=== PATIENT | male | born 1950 | race Caucasian/White ===

== ENCOUNTER → 2016-08-25 | Outpatient (CLI) | payer MEDICARE ==
--- NOTE | 2016-08-25 13:43 | REP ---
CT STUDY OF THE CHEST WITHOUT CONTRAST: HISTORY: Abnormal lung field findings. Comparison chest x-ray is from August 10, 2005. No other comparison imaging. CT FINDINGS: No pleural or pericardial effusion is seen. There is a low-density mass in the left adrenal gland with negative Hounsfield unit density mean. This is compatible with a benign left adrenal adenoma. It measures 3.5 x 3.3 x 3.7 cm. No right adrenal lesion is seen. The visualized upper abdominal structures are otherwise unremarkable. No hilar or mediastinal mass or adenopathy is seen. There is left coronary artery vascular calcification. No axillary or supraclavicular adenopathy is seen. Bone window settings show no bony destructive lesion. On lung window settings, there is a pattern of multiple noncalcified pulmonary nodules bilaterally. These are too numerous to count. The largest nodules are in the upper lobes. The largest nodule on the right measures 1.1 cm. The largest nodule on the left in the upper lobe measures 1.5 x 0.8 cm. Several of these appears spiculated. There are clusters of bernice bronchovascular nodules in the posterior segment and superior segment of the right upper lobe. No tracheobronchial abnormality is seen. IMPRESSION: Numerous noncalcified pulmonary nodules measuring up to 1.5 cm in greatest diameter. Bernice bronchovascular pattern. Granulomatous disease versus malignancy. No adenopathy or pleural effusion seen. 3.7 cm benign left adrenal adenoma. Signed by Angel Martinez MD 08/25/2016 02:06 P
== END ==
LOC: M RAD 12:51
PROVIDERS: ATTEND Internal Medicine Pulmonary Disease
DX: R91.8 Other nonspecific abnormal finding of lung field (principal); D35.00 Benign neoplasm of unspecified adrenal gland

== ENCOUNTER → 2016-12-15 | Outpatient (CLI) | payer MEDICARE ==
--- NOTE | 2016-12-15 10:27 | REP ---
Clinical: Follow-up pulmonary nodules. Comparison: 08/25/2016, 07/28/2016. Findings: The lung patiño are well-aerated. Scattered noncalcified pulmonary nodules primarily noted in the right upper lobe, left upper lobe, and right lower lobe remain essentially unchanged in size and quantity. No obvious new consolidation, or mass lesion appreciated. No pleural effusion. No pneumothorax. Tracheobronchial tree is patent. Subcentimeter lymph nodes are nonspecific. Mediastinum demonstrates stable atherosclerotic changes to the thoracic aorta and coronary arteries without cardiomegaly or pericardial effusion. Surrounding musculoskeletal structures demonstrate age-related changes without focal osseous abnormality. Stable 3.5 cm left adrenal adenoma noted. Impression: 1. The noncalcified pulmonary nodules scattered throughout the lung patiño and primarily noted in the bilateral upper lobes measuring up to approximately 15 mm are stable. 2. No new acute mediastinal or pleuroparenchymal process. 3. Stable benign left adrenal adenoma. Signed by Ryan Uriostegui MD 12/15/2016 10:19 A
== END ==
LOC: M RAD 09:40
PROVIDERS: ATTEND Internal Medicine Pulmonary Disease
DX: R91.8 Other nonspecific abnormal finding of lung field (principal); D35.00 Benign neoplasm of unspecified adrenal gland

== ENCOUNTER → 2017-06-15 | Outpatient (CLI) | payer MEDICARE | LOC: M RAD 10:24 | DX: R91.8 Other nonspecific abnormal finding of lung field (principal) | CPT/HCPCS: 71250 ==

== ENCOUNTER → 2019-03-14 | Outpatient (CLI) | payer MEDICARE ==
--- NOTE | 2019-03-14 14:21 | REP ---
Clinical: Follow up abnormal lung findings. Technique: Axial noncontrast images from the thoracic inlet to the upper abdomen with coronal and sagittal re-formations. Comparison: 06/15/2017. Findings: Innumerable noncalcified pulmonary nodules are again identified primarily noted in the posterior right upper lobe, scattered within the right lower lobe and within the left upper lobe which appear relatively stable. However, a single new nodule in the left upper lobe measuring 13 mm is now identified (image 45). No consolidation. No effusion. No pneumothorax. Tracheobronchial tree is patent. Hilar and mediastinal adenopathy has considerably increased from prior examination. As example, a 3.3 cm prevascular lymph node is now identified. Limited upper abdomen demonstrates 3.6 cm stable left adrenal adenoma. Impression: 1. A new noncalcified 13 mm pulmonary nodules identified in the left upper lobe and markedly increased mediastinal/hilar adenopathy is appreciated. Findings warrant pulmonary consultation and further investigation. Electronically Signed by Ryan Uriostegui MD 03/14/2019 02:13 P
== END ==
LOC: M RAD 13:44
PROVIDERS: ATTEND Internal Medicine Pulmonary Disease
DX: R91.1 Solitary pulmonary nodule (principal); R59.0 Localized enlarged lymph nodes

== ENCOUNTER → 2019-03-22 | Outpatient (CLI) | payer MEDICARE | LOC: M LAB 15:02 | PROVIDERS: ATTEND Internal Medicine Pulmonary Disease | DX: R91.8 Other nonspecific abnormal finding of lung field (principal) ==

== ENCOUNTER → 2019-04-21 | Outpatient (REF) | payer MEDICARE | LOC: M LAB REF 14:16 | PROVIDERS: ATTEND Thoracic Surgery (Cardiothoracic Vascular Surgery) | DX: R22.2 Localized swelling, mass and lump, trunk (principal) ==

== ENCOUNTER → 2019-05-05 | Outpatient (CLI) | payer MEDICARE ==
[~2019-05-05] MED LIST: ASPI81TA26 PO; BACL1TAB9 PO; DIAZ10TA2 PO; HYDR-3713 PO; ROSU10TA6 PO; TERA10CA3 PO; ZOLO100T PO; medical marijuana
[2019-05-05 13:10] LABS: BASO % 0.5 % (0.0-1.0); EOS # 0.2 10^3/uL (0.0-0.5); EOS % 4.2 % (0.0-3.0); HEMATOCRIT 40.3 % (42.0-52.0); HEMOGLOBIN 13.1 g/dl (13.5-17.5); LYMPH # 1.7 10^3/uL (1.5-5.0); MEAN CORPUSCULAR HEMOGLOBIN 29.9 pg (27.0-33.0); MEAN CORPUSCULAR HGB CONC 32.5 g/dl (32.0-36.5); MONO # 0.4 10^3/uL (0.0-0.8); MONO % 9.4 % (0.0-5.0); NEUTROPHILS # 1.9 10^3/uL (1.5-8.5); NEUTROPHILS % 44.7 % (36.0-66.0); PLATELET COUNT, AUTOMATED 154 10^3/uL (150-450); RED BLOOD COUNT 4.38 10^6/uL (4.30-6.10); WHITE BLOOD COUNT 4.2 10^3/uL (4.0-10.0)
[2019-05-05 13:18] LABS: INR 1.06; PROTHROMBIN TIME 13.5 SECONDS (11.8-14.0)
[2019-05-05 13:19] LABS: PARTIAL THROMBOPLASTIN TIME 30.3 SECONDS (25.0-38.4)
[2019-05-05 13:25] LABS: APPEARANCE, URINE CLEAR (CLEAR); BACTERIA, URINE AUTO NEGATIVE (NEGATIVE); BILIRUBIN, URINE AUTO NEGATIVE (NEGATIVE); BLOOD, URINE BLOOD NEGATIVE (NEGATIVE); COLOR, URINE YELLOW (YELLOW); GLUCOSE, URINE (UA) AUTO NEGATIVE (NEGATIVE); KETONE, URINE AUTO NEGATIVE (NEGATIVE); LEUKOCYTE ESTERASE, URINE AUTO NEGATIVE (NEGATIVE); MUCUS, URINE SMALL (NEGATIVE); NITRITE, URINE AUTO NEGATIVE (NEGATIVE); PROTEIN, URINE AUTO NEGATIVE (NEGATIVE); RBC, URINE AUTO 0 /HPF (0-3); SPECIFIC GRAVITY URINE AUTO 1.017 (1.002-1.035); SQUAMOUS EPITHELIAL CELL UR AU 0 /HPF (0-6); UROBILINOGEN, URINE AUTO 0.2 mg/dL (0.0-2.0); WBC, URINE AUTO 1 /HPF (0-3)
[2019-05-05 13:25] LABS: ABG BASE EXCESS -0.3 (-2.0-2.0); ABG HCO3 23.5 MEQ/L (22.0-26.0); ABG O2 SATURATION 96.6 % (95.0-99.0); ABG PARTIAL PRESSURE CO2 35.7 mmHg (35.0-45.0); ABG PARTIAL PRESSURE O2 90.7 mmHg (75.0-100.0); ABG STANDARD HCO3 24.2 MEQ/L (22.0-26.0); ABG TOTAL CO2 24.6 MEQ/L (23.0-31.0); ABG pH (ARTERIAL) 7.436 UNITS (7.350-7.450)
[2019-05-05 13:25] LABS: BLOOD UREA NITROGEN 20 MG/DL (7-18); CALCIUM LEVEL 8.7 MG/DL (8.8-10.2); CARBON DIOXIDE LEVEL 26 MEQ/L (21-32); CHLORIDE LEVEL 107 MEQ/L (98-107); CREATININE FOR GFR 1.08 MG/DL (0.70-1.30); GLOMERULAR FILTRATION RATE > 60.0 (>42); GLUCOSE, FASTING 95 MG/DL (70-100); POTASSIUM SERUM 3.8 MEQ/L (3.5-5.1); SODIUM LEVEL 140 MEQ/L (136-145)
--- NOTE | 2019-05-05 14:10 | REP ---
Chest x-ray: Two views. History: Mediastinal lymphadenopathy. Comparison chest x-ray Aug 10 1005. Comparison is made with chest CT study March 14, 2019. Findings: There is a faintly visualized 1.1 cm nodular density in the left perihilar region. There is left hilar and AP window left mediastinal fullness consistent with adenopathy. The lung patiño are otherwise clear. Pleural angles are sharp. Heart is not enlarged. Thoracic vertebral body heights are preserved. The patient is status post cervical discectomy and fusion plating. Impression : Left hilar and left mediastinal lymphadenopathy. Subtle left perihilar nodule. Rule out bronchogenic malignancy. Otherwise no acute disease. Electronically Signed by Angel Martinez MD 05/05/2019 02:01 P
--- NOTE | 2019-05-06 08:14 | ECGEPIP ---
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
== END ==
LOC: M ADMPAT 12:16
PROVIDERS: ATTEND Thoracic Surgery (Cardiothoracic Vascular Surgery)
DX: R59.9 Enlarged lymph nodes, unspecified (principal)

== ENCOUNTER 2019-05-10 06:50 | Inpatient (IN) | payer MEDICARE ==
[2019-05-10] VITALS (14 sets, daily range): BP systolic 106–147; BP diastolic 56–71
[~2019-05-10] VITALS: Ht 182.9 cm; Wt 84.5 kg
[~2019-05-10 06:50] MED LIST changes: +LIDOCAINE 1% MDV 20ML VIAL SQ PRN; +LIDOCAINE 2% INJ 100 MG/5 ML SDV (FOR ANES.) As Ordered ONE; +LR 1,000 ML IV ONE; +MIDAZOLAM INJ 2 MG/2 ML VIAL (J2250) As Ordered ONE; +ONDANSETRON 4MG/2ML VIAL (J2405) As Ordered ONE; +ROCURONIUM BROMIDE 50 MG/5 ML VIAL As Ordered ONE; +SUGAMMADEX SODIUM 500 MG/5 ML VIAL (BRIDION) As Ordered ONE; +dexameTHASONE 4 MG/ML 1ML VIAL (J1100) As Ordered ONE; +fentaNYL 250 MCG/5 ML INJECTION (J3010) As Ordered ONE; +propofoL 200 MG/20 ML VIAL As Ordered ONE
[2019-05-10] MEDS ORDERED: VANCOMYCIN HCL 1,000 MG, VIAL MATE ADAPTER 1 EACH in D5W 250 ML IV ONE (07:45)
[2019-05-10] MEDS ORDERED: MUPIROCIN 2% OINT 22 GM TUBE TOP ONE (07:45)
[2019-05-10] MEDS ORDERED: BUPR150T3 PO (07:46)
[2019-05-10] MEDS ORDERED: MIDAZOLAM INJ 2 MG/2 ML VIAL (J2250) As Ordered ONE (08:03)
[2019-05-10] MEDS ORDERED: fentaNYL 100 MCG/2 ML INJECTION (J3010) As Ordered ONE (08:03)
[2019-05-10] MEDS ORDERED: BUPIVACAINE HCL 0.25% 30 ML VIAL As Ordered ONE (08:27)
[2019-05-10] MEDS ORDERED: BUPIVACAINE LIPOSOME/PF 1.3% 20ML VIAL (13.3MG/ML)(EXPAREL)(C9290 PER1MG) As Ordered ONE (08:30)
[2019-05-10] MEDS ORDERED: BUPIVACAINE HCL 0.5% 10 ML VIAL As Ordered ONE (08:30)
[2019-05-10] MEDS ORDERED: CETACAINE SPRAY 5GM As Ordered ONE (08:30)
[2019-05-10] MEDS ORDERED: LIDOCAINE 2% W/EPIN INJ 20ML **PRES FREE As Ordered ONE (08:55)
[2019-05-10] MEDS ORDERED: EPIDURAL/PCA KEYS XX PRN (09:00)
[2019-05-10] MEDS ORDERED: MIDAZOLAM INJ 2 MG/2 ML VIAL (J2250) IV ONE (09:00)
[2019-05-10] MEDS ORDERED: METOCLOPRAMIDE INJ 10MG/2ML VIAL (J2765) IV PRN (09:00)
[2019-05-10] MEDS ORDERED: ONDANSETRON 4MG/2ML VIAL (J2405) IV PRN ×3 (09:00→12:45)
[2019-05-10] MEDS ORDERED: NALOXONE INJ 0.4 MG/1 ML VIAL (J2310) IV PRN (09:00)
[2019-05-10] MEDS ORDERED: WALLBOXKEY XX PRN (09:00)
[2019-05-10] MEDS ORDERED: fentaNYL 100 MCG/2 ML INJECTION (J3010) IV ONE (09:00)
[2019-05-10] MEDS ORDERED: GLYCOPYRROLATE INJ 0.2 MG/ML 2 ML VIAL As Ordered ONE (09:40)
[2019-05-10] MEDS ORDERED: LIDOCAINE 1% MDV 20ML VIAL ONE (10:34)
[2019-05-10] MEDS ORDERED: ACETAMINOPHEN 1000MG 100ML IV BTL (OFIRMEV) (J0131 PER 10MG) As Ordered ONE (10:48)
[2019-05-10] MEDS ORDERED: KETOROLAC 60 MG/2 ML VIAL (J1885) As Ordered ONE (10:52)
[2019-05-10] MEDS ORDERED: LEVALBUTEROL 1.25 MG/0.5 ML CONCENTRATE NEB NEB PRN (11:15)
[2019-05-10] MEDS ORDERED: PERCOCET 5MG/325MG TAB PO PRN ×2 (11:15)
[2019-05-10] MEDS ORDERED: ACETAMINOPHEN TAB 650MG DOSE (2X325MG) PO PRN (11:15)
[2019-05-10] MEDS ORDERED: BISACODYL 10 MG SUPP PR PRN (11:15)
[2019-05-10] MEDS: FENTANYL/BUPIVACAINE/NACL BAG 250 ML EPIDURAL SCH (11:25)
[2019-05-10 11:42] LABS: ABG BASE EXCESS -1.1 (-2.0-2.0); ABG O2 SATURATION 98.7 % (95.0-99.0); ABG PARTIAL PRESSURE CO2 47.7 mmHg (35.0-45.0); ABG PARTIAL PRESSURE O2 145.5 mmHg (75.0-100.0); ABG STANDARD HCO3 23.6 MEQ/L (22.0-26.0); ABG TOTAL CO2 26.5 MEQ/L (23.0-31.0); ABG pH (ARTERIAL) 7.338 UNITS (7.350-7.450)
[2019-05-10 11:47] LABS: BASO % 0.5 % (0.0-1.0); EOS # 0.1 10^3/uL (0.0-0.5); EOS % 3.3 % (0.0-3.0); HEMATOCRIT 37.5 % (42.0-52.0); HEMOGLOBIN 12.2 g/dl (13.5-17.5); LYMPH % 25.9 % (24.0-44.0); MEAN CORPUSCULAR HGB CONC 32.5 g/dl (32.0-36.5); MEAN CORPUSCULAR VOLUME 92.4 fl (80.0-96.0); MONO # 0.1 10^3/uL (0.0-0.8); MONO % 3.5 % (0.0-5.0); NEUTROPHILS # 2.7 10^3/uL (1.5-8.5); NEUTROPHILS % 66.5 % (36.0-66.0); PLATELET COUNT, AUTOMATED 144 10^3/uL (150-450); RED BLOOD COUNT 4.06 10^6/uL (4.30-6.10)
[2019-05-10 12:13] LABS: BLOOD UREA NITROGEN 22 MG/DL (7-18); CALCIUM LEVEL 8.1 MG/DL (8.8-10.2); CARBON DIOXIDE LEVEL 28 MEQ/L (21-32); CHLORIDE LEVEL 108 MEQ/L (98-107); CREATININE FOR GFR 1.03 MG/DL (0.70-1.30); GLOMERULAR FILTRATION RATE > 60.0 (>42); GLUCOSE, FASTING 126 MG/DL (70-100); POTASSIUM SERUM 4.8 MEQ/L (3.5-5.1); SODIUM LEVEL 139 MEQ/L (136-145)
--- NOTE | 2019-05-10 12:21 | REP ---
Portable chest, 11:33 a.m., single AP view with the patient sitting: Comparison is 05/05/2019. There is subcutaneous emphysema along the left lateral chest wall as an interval change. There is a left thoracotomy tube, not present previously. There is no left pneumothorax or pleural fluid collection. There is questionable right pneumothorax versus skin fold. There is an epidural catheter, not present previously. Lung patiño otherwise clear. Cardiac size normal. The crispin and mediastinum are unchanged. There is a cervical spine stabilization plate, unchanged. Impression: Subcutaneous emphysema along the left lateral chest wall. Left thoracotomy tube. No left pneumothorax. Questionable right pneumothorax versus skin fold artifact. Epidural catheter. Electronically Signed by Patrick Lucero MD 05/10/2019 12:13 P
[2019-05-10] MEDS: KCL 20MEQ IN D5/NS 1000ML 1,000 ML IV SCH ×2 (12:35→23:05)
[2019-05-10] MEDS ORDERED: oxyCODONE 5MG TAB PO PRN (12:45)
[2019-05-10] MEDS ORDERED: LR 1,000 ML IV SCH (12:45)
[2019-05-10] MEDS ORDERED: fentaNYL 100 MCG/2 ML INJECTION (J3010) IV PRN (12:45)
[2019-05-10] MEDS: LEVALBUTEROL 1.25 MG/0.5 ML CONCENTRATE NEB NEB SCH ×2 (14:17→21:18)
[2019-05-10] MEDS: PANTOPRAZOLE 40MG TAB (PROTONIX) PO SCH (14:42)
[2019-05-10] MEDS: MOM 30ML SUSPENSION UDC PO SCH (14:44)
[2019-05-10] MEDS: KETOROLAC 30 MG/ML VIAL (J1885) IV SCH ×2 (17:05→23:04)
[2019-05-10] MEDS: diphenhydrAMINE INJ 50MG/ML VIAL (J1200) IV PRN (20:50)
[2019-05-10] MEDS: HEPARIN SOD (PORCINE) 5000 UNITS/ML VIAL (J1644 PER 1000UNITS) SC SCH (20:50)
[2019-05-10] MEDS: DOCUSATE SODIUM 100 MG CAP PO SCH (21:00)
[2019-05-11] VITALS (7 sets, daily range): BP systolic 11–130; BP diastolic 52–67
[2019-05-11] MEDS: diphenhydrAMINE INJ 50MG/ML VIAL (J1200) IV PRN ×2 (00:54→04:56)
[2019-05-11] MEDS: LEVALBUTEROL 1.25 MG/0.5 ML CONCENTRATE NEB NEB SCH ×4 (02:17→20:05)
[2019-05-11] MEDS: KETOROLAC 30 MG/ML VIAL (J1885) IV SCH ×3 (05:02→17:17)
[2019-05-11 05:22] LABS: BASO % 0.2 % (0.0-1.0); EOS # 0.1 10^3/uL (0.0-0.5); EOS % 0.9 % (0.0-3.0); HEMATOCRIT 33.6 % (42.0-52.0); HEMOGLOBIN 10.8 g/dl (13.5-17.5); LYMPH # 1.5 10^3/uL (1.5-5.0); LYMPH % 23.7 % (24.0-44.0); MEAN CORPUSCULAR HEMOGLOBIN 29.7 pg (27.0-33.0); MEAN CORPUSCULAR HGB CONC 32.1 g/dl (32.0-36.5); MEAN CORPUSCULAR VOLUME 92.3 fl (80.0-96.0); MONO # 0.5 10^3/uL (0.0-0.8); MONO % 7.7 % (0.0-5.0); NEUTROPHILS # 4.3 10^3/uL (1.5-8.5); NEUTROPHILS % 67.2 % (36.0-66.0); PLATELET COUNT, AUTOMATED 130 10^3/uL (150-450); RED BLOOD COUNT 3.64 10^6/uL (4.30-6.10); WHITE BLOOD COUNT 6.4 10^3/uL (4.0-10.0)
[2019-05-11 05:41] LABS: BLOOD UREA NITROGEN 17 MG/DL (7-18); CALCIUM LEVEL 7.6 MG/DL (8.8-10.2); CARBON DIOXIDE LEVEL 27 MEQ/L (21-32); CHLORIDE LEVEL 107 MEQ/L (98-107); CREATININE FOR GFR 1.12 MG/DL (0.70-1.30); GLOMERULAR FILTRATION RATE > 60.0 (>42); GLUCOSE, FASTING 110 MG/DL (70-100); POTASSIUM SERUM 3.9 MEQ/L (3.5-5.1); SODIUM LEVEL 139 MEQ/L (136-145)
[2019-05-11 06:37] LABS: ABG BASE EXCESS 0.3 (-2.0-2.0); ABG HCO3 25.7 MEQ/L (22.0-26.0); ABG O2 SATURATION 97.7 % (95.0-99.0); ABG PARTIAL PRESSURE CO2 44.8 mmHg (35.0-45.0); ABG PARTIAL PRESSURE O2 106.3 mmHg (75.0-100.0); ABG STANDARD HCO3 24.8 MEQ/L (22.0-26.0); ABG TOTAL CO2 27.1 MEQ/L (23.0-31.0); ABG pH (ARTERIAL) 7.377 UNITS (7.350-7.450)
--- NOTE | 2019-05-11 07:40 | REP ---
PA and lateral chest: Comparison is the portable chest of 05/10/2009. The left thoracotomy tube is unchanged. There is no left pneumothorax. The volume of subcutaneous emphysema along the left lateral chest wall has decreased. There is no right pneumothorax. The finding on the comparison study was likely a skin fold artifact. The epidural catheter is unchanged. Lung patiño are clear. Cardiac size is normal. The crispin, mediastinum, skeletal structures are unremarkable. There is a cervical spine stabilization plate, unchanged. Electronically Signed by Patrick Lucero MD 05/11/2019 07:32 A
[2019-05-11] MEDS: MOM 30ML SUSPENSION UDC PO SCH (08:33)
[2019-05-11] MEDS: DOCUSATE SODIUM 100 MG CAP PO SCH ×2 (08:48→20:15)
[2019-05-11] MEDS: PANTOPRAZOLE 40MG TAB (PROTONIX) PO SCH (08:48)
[2019-05-11] MEDS: HEPARIN SOD (PORCINE) 5000 UNITS/ML VIAL (J1644 PER 1000UNITS) SC SCH ×2 (08:49→19:56)
--- NOTE | 2019-05-11 09:59 | RO ---
DATE OF PROCEDURE: 05/10/2019 PREPROCEDURE DIAGNOSIS: Mediastinal lymphadenopathy periaortic. POSTOPERATIVE DIAGNOSIS: Mediastinal lymphadenopathy periaortic with frozen section showing small cell carcinoma. PROCEDURE: Anterior video-assisted thoracoscopic surgery (VATS) thoracoscopy, mediastinal node dissection and biopsy. Bronchoscopy and three level rib block. SURGEON: Dr. 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 It is approximately 3 cm and much of it was mobilized. However, the phrenic nerve was traveling just below the node and I did not want to take the chance of putting traction on the node in order to excise it completely. I therefore decided to do multiple biopsies, which came back small cell carcinoma. There was no therapeutic advantage to removing the entire node. DESCRIPTION OF PROCEDURE: Under satisfactory general anesthesia and single lumen endotracheal tube intubation, the bronchoscope was placed into the tracheal bronchial tree. Bronchoscopy revealed a normal branching tracheal bronchial tree and there were no endobronchial lesions. There were copious secretions and these were suctioned aspirated. An incision was made 2 cm medial to the nipple over the fourth intercostal space. A 5 mm port was placed and the chest was insufflated. The initial insufflation pressure was 10, which caused a drop in his blood pressure. The pressure was released and he was insufflated to 6 with no change in his blood pressure. The mediastinum was thoroughly inspected and the large mediastinal node/mass was identified. As noted above, the phrenic nerve traveled just below the node. Two more ports were placed and dissection was then started anteriorly with the harmonic scalpel. Much of the node could be uncovered and mobilized. I did start to have difficulty in and around the phrenic nerve where I felt that there could have been a traction injury, therefore, I decided to sample the node. Multiple samples of the node were taken and sent for frozen section, which showed small cell carcinoma. Hemostasis was then achieved by use of electrocautery and Tisseel. Once chest tube was then placed through one of the port incisions. The lung was reinflated and the ports removed. Incisions were closed with running #3-0 Vicryl suture for the subcutaneous tissue and subcuticular #4-0 Monopril suture for the skin subcuticularly. The patient tolerated the procedure well and left the operating room in satisfactory condition for the recovery room.
[2019-05-11] MEDS: FENTANYL/BUPIVACAINE/NACL BAG 250 ML EPIDURAL SCH (10:42)
--- NOTE | 2019-05-11 13:18 | IPN ---
DATE: 05/11/2019 This is now the first postoperative day for Mr. Roy. He has had a stable night of surgery and his pain is being well controlled at the chest tube insertion site. He continues on the epidural. His vital signs show a T-max of 100.4 with a heart rate that ranges between 58 and 61 and is sinus rhythm, respiratory rate of 11 to 20 without the use of accessory muscles, who is 96% saturated on room air. His blood pressure is ranging between 103/58 to 107/52. His intake and output the past 24 hours has been recorded as 2580 in and 1035 out for a positivity of 1500 mL. Weight today is 85 kilos compared to 80.9 kilos yesterday. On physical examination he has some scattered rhonchi on the right side, most of which cleared with coughing. Percussion note is full to the diaphragm. Cardiac exam is without murmurs, clicks, gallops or rubs. I cannot feel his point of maximal impulse (PMI). S1 and S2 are normal. Abdomen is soft and nontender. Bowel sounds are positive. There is no hepatomegaly. No costovertebral angle (CVA) tenderness. Extremities show no pretibial edema. No calf tenderness. No differential swelling of the upper extremities. Skin is warm, dry and perfused without cyanosis or mottling including that of the nail beds and the knees. Neck is supple. There is no jugular venous distention. No subcutaneous emphysema. Trachea is midline. Mouth shows his mucous membranes to be pink and moist. Lips and commissures are without lesions. There is no thrush. Eyes show his pupils to be equal, reactive. Extraocular motions are intact. Sclera nonicteric. Neuro shows II through XII intact, along with gross motor and gross sensation intact. Gait is not tested. Psychiatric shows him to be awake and alert, oriented times three with appropriate mood, affect and conversational. His white count today is 6.4 with a hemoglobin and hematocrit of 10.8 and 33.6 down from 12.2 and 37.5 secondary to hemodilution. Platelet count is 130. Differential shows 67% neutrophils, 23% lymphocytes, 7% monocytes. There are no immature forms, no toxic granulations. His electrolytes are normal with a BUN and creatinine of 1.7 and 1.23 and a glucose of 11 and calcium 7.6. His chest x-ray shows his lung fully expanded to the chest wall. I do not see any infiltrates. Costophrenic angles are sharp. Final pathology is still pending, but frozen section showed it to be small cell carcinoma. IMPRESSION: 1. Postop day 1 status post mediastinal lymph node biopsies with VATS technique. 2. Small cell carcinoma. 3. Benign prostatic hypertrophy (BPH). PLAN AND DISCUSSION: I will remove his chest tubes today and wean his epidural. I will discontinue his Mcgowan catheter. Will give oral pains medications during the wean. Hopefully we will be able to discharge him tomorrow.
[2019-05-11] MEDS: ASPIRIN 81 MG ENTERIC TAB PO SCH (13:58)
[2019-05-11] MEDS: buPROPion **XL** TABLET 150MG (WELLBUTRIN XL) PO SCH (13:58)
[2019-05-11] MEDS: BACLOFEN 10 MG TAB PO SCH ×3 (13:58→20:15)
[2019-05-11] MEDS: TERAZOSIN 5 MG CAP PO SCH (14:47)
[2019-05-11] MEDS: NORCO, ANEXSIA 5/325MG TABLET (HYDROcodone/ACETAMINOPHEN) PO PRN ×2 (16:27→20:15)
[2019-05-11] MEDS ORDERED: ROSUVASTATIN 10 MG TAB (CRESTOR) PO SCH (21:00)
[2019-05-11] MEDS ORDERED: diazePAM 10 MG TAB PO SCH (21:00)
[2019-05-12] MEDS: KETOROLAC 30 MG/ML VIAL (J1885) IV SCH ×3 (00:54→11:40)
[2019-05-12] MEDS: LEVALBUTEROL 1.25 MG/0.5 ML CONCENTRATE NEB NEB SCH ×2 (02:00→07:30)
[2019-05-12 04:00] VITALS: BP 126/60
[2019-05-12] MEDS: NORCO, ANEXSIA 5/325MG TABLET (HYDROcodone/ACETAMINOPHEN) PO PRN ×2 (04:51→11:40)
[2019-05-12 05:19] LABS: BASO % 0.4 % (0.0-1.0); EOS # 0.2 10^3/uL (0.0-0.5); EOS % 4.5 % (0.0-3.0); HEMATOCRIT 36.4 % (42.0-52.0); HEMOGLOBIN 11.3 g/dl (13.5-17.5); LYMPH # 1.9 10^3/uL (1.5-5.0); LYMPH % 37.7 % (24.0-44.0); MEAN CORPUSCULAR HEMOGLOBIN 29.6 pg (27.0-33.0); MEAN CORPUSCULAR VOLUME 95.3 fl (80.0-96.0); MONO # 0.4 10^3/uL (0.0-0.8); MONO % 7.4 % (0.0-5.0); NEUTROPHILS # 2.6 10^3/uL (1.5-8.5); NEUTROPHILS % 49.8 % (36.0-66.0); PLATELET COUNT, AUTOMATED 135 10^3/uL (150-450); RED BLOOD COUNT 3.82 10^6/uL (4.30-6.10); WHITE BLOOD COUNT 5.1 10^3/uL (4.0-10.0)
[2019-05-12 05:37] LABS: BLOOD UREA NITROGEN 19 MG/DL (7-18); CALCIUM LEVEL 8.1 MG/DL (8.8-10.2); CARBON DIOXIDE LEVEL 30 MEQ/L (21-32); CHLORIDE LEVEL 112 MEQ/L (98-107); CREATININE FOR GFR 1.16 MG/DL (0.70-1.30); GLOMERULAR FILTRATION RATE > 60.0 (>42); GLUCOSE, FASTING 94 MG/DL (70-100); POTASSIUM SERUM 4.4 MEQ/L (3.5-5.1); SODIUM LEVEL 144 MEQ/L (136-145)
--- NOTE | 2019-05-12 07:44 | REP ---
PA and lateral chest: Comparison is 05/11/2019. The patient also has chest CT dated 03/14/2019. The left thoracotomy tube and epidural catheter 05/11/2019 been removed. There is no pneumothorax. There is a small volume of subcutaneous emphysema along the left lateral chest wall, not significantly changed from 05/11/2019. Lung patiño otherwise clear. However, on the comparison CT there are multiple lung nodules. These are not visible on plain films. The crispin are unchanged and unchanged from a prior study of 08/10/2005. Mediastinum and skeletal structures are unchanged. Cervical spine stabilization plate is unchanged. Impression: The left thoracotomy tube and the epidural catheter been removed. There is no other significant interval change. Electronically Signed by Patrick Lucero MD 05/12/2019 07:35 A
[2019-05-12 08:00] VITALS: BP 132/73
[2019-05-12] MEDS: BACLOFEN 10 MG TAB PO SCH (08:34)
[2019-05-12] MEDS: buPROPion **XL** TABLET 150MG (WELLBUTRIN XL) PO SCH (08:34)
[2019-05-12] MEDS: HEPARIN SOD (PORCINE) 5000 UNITS/ML VIAL (J1644 PER 1000UNITS) SC SCH (08:34)
[2019-05-12] MEDS: PANTOPRAZOLE 40MG TAB (PROTONIX) PO SCH (08:34)
[2019-05-12] MEDS: ASPIRIN 81 MG ENTERIC TAB PO SCH (08:34)
[2019-05-12] MEDS: DOCUSATE SODIUM 100 MG CAP PO SCH (08:35)
[2019-05-12] MEDS: TERAZOSIN 5 MG CAP PO SCH (08:35)
[2019-05-12] MEDS: MOM 30ML SUSPENSION UDC PO SCH (08:35)
[2019-05-12] MEDS ORDERED: SLF 3 ML SYR IV PRN (10:30)
--- NOTE | 2019-05-12 12:05 | DSES ---
DATE OF ADMISSION: 05/10/2019 DATE OF DISCHARGE: 05/12/2019 DISCHARGE DIAGNOSES: 1. Postoperative day #2 status post mediastinal lymph node biopsy with video-assisted thoracoscopic surgery (VATS) technique. 2. Small cell carcinoma. 3. BPH. HOSPITAL COURSE: Patient is a 68-year-old white male who was noted to have multiple nodules on CT scans, which all remained stable. He also was noted to have mediastinal lymphadenopathy, which also remained stable over 2 years. However, in the last 6 months, a para-aortic mediastinal node was found to increase in size and was found to be hypermetabolic on CT scanning. He, therefore, underwent a VATS procedure with multiple biopsies of the lymph node, which showed it to be small cell carcinoma. He does have a small right upper lobe lung mass. He had a benign postoperative course with his chest tube being removed on the first postoperative day. He is being discharged on the second postoperative day on his home medications, which include aspirin 81 mg every day, baclofen 20 mg four times a day, bupropion XL 150 mg by mouth every day, diazepam 10 mg nightly, rosuvastatin 10 mg every evening, and terazosin 10 mg every day. He will return to see me in 1 week for postoperative followup, at which time I will refer him to oncology. His discharge white count is 5.1 with hemoglobin and hematocrit of 11.3 and 36.4 and a platelet count of 135. Electrolytes are normal with BUN and creatinine of 19 and 1.16. Chest x-ray shows his lung fully expanded to the chest wall with sharp costophrenic angles. Edited: [place] 05/14/2019 0928
[2019-05-12] MEDS ORDERED: SLF 3 ML SYR IV SCH (14:00)
== END 2019-05-12 12:55 | disposition home or self-care (01) | DRG 168 ==
LOC: M OR 06:50 → M ICU 13:42 → M PCU 05-11 15:05
PROVIDERS: ADMIT Thoracic Surgery (Cardiothoracic Vascular Surgery); ATTEND Thoracic Surgery (Cardiothoracic Vascular Surgery)
PROC: 07B74ZX Excision of Thorax Lymphatic, Percutaneous Endoscopic Approach, Diagnostic (ICD-10-PCS; principal; 2019-05-10 08:30)
DX: C38.3 Malignant neoplasm of mediastinum, part unspecified (principal); I73.9 Peripheral vascular disease, unspecified; I10 Essential (primary) hypertension; F43.12 Post-traumatic stress disorder, chronic; G30.0 Alzheimer's disease with early onset; D35.02 Benign neoplasm of left adrenal gland; E55.9 Vitamin D deficiency, unspecified; Z79.82 Long term (current) use of aspirin; Z79.899 Other long term (current) drug therapy; Z87.891 Personal history of nicotine dependence

== ENCOUNTER → 2019-05-29 | Outpatient (CLI) | payer MEDICARE ==
[~2019-05-29] MED LIST changes: +BUPR150T3 PO; -LIDOCAINE 1% MDV 20ML VIAL SQ PRN; -LIDOCAINE 2% INJ 100 MG/5 ML SDV (FOR ANES.) As Ordered ONE; -LR 1,000 ML IV ONE; -MIDAZOLAM INJ 2 MG/2 ML VIAL (J2250) As Ordered ONE; -ONDANSETRON 4MG/2ML VIAL (J2405) As Ordered ONE; -ROCURONIUM BROMIDE 50 MG/5 ML VIAL As Ordered ONE; -SUGAMMADEX SODIUM 500 MG/5 ML VIAL (BRIDION) As Ordered ONE; -dexameTHASONE 4 MG/ML 1ML VIAL (J1100) As Ordered ONE; -fentaNYL 250 MCG/5 ML INJECTION (J3010) As Ordered ONE; -propofoL 200 MG/20 ML VIAL As Ordered ONE
--- NOTE | 2019-05-29 09:31 | REPPI ---
Clinical: Pulmonary nodule. Technique: PA and lateral. Comparison: 05/12/2019. Findings: Mediastinum and cardiac silhouette are within normal limits and stable. Lung patiño demonstrate chronic emphysematous changes. Nodules and adenopathy identified on chest CT dated 03/14/2019 are not visualized by current radiographic evaluation. Impression: Chronic stable changes. No obvious acute process. Previously noted adenopathy and pulmonary nodules not identified by radiographic evaluation. Electronically Signed by Ryan Uriostegui MD 05/29/2019 09:22 A
== END ==
LOC: M PLAIMG 09:05
PROVIDERS: ATTEND Thoracic Surgery (Cardiothoracic Vascular Surgery)
DX: R91.1 Solitary pulmonary nodule (principal)

== ENCOUNTER → 2020-03-12 | Outpatient (CLI) | payer MEDICARE ==
[~2020-03-12] MED LIST changes: +PROHANCE 279.3MG/ML 15ML VIAL As Ordered ONE; +PROHANCE 279.3MG/ML 5ML VIAL As Ordered ONE
--- NOTE | 2020-03-12 18:42 | REPVR ---
PROCEDURE INFORMATION: Exam: MR Head Without and With Contrast Exam date and time: 03/12/2020 3:37 PM Age: 69 years old Clinical indication: Condition or disease; Cancer; Metastatic or secondary malignancy of brain; Prior surgery; Surgery date: 6+ months; Additional info: Brain mets TECHNIQUE: Imaging protocol: MR of the head without and with intravenous contrast. Contrast material: PROHANCE; Contrast volume: 17 ml; Contrast route: INTRAVENOUS (IV); COMPARISON: PT PET/CT SKULL BASE TO MID THIGH - OUTSIDE PRIOR 02/01/2019 2:32 PM FINDINGS: Brain: There is a left occipital enhancing mass measuring 2.2 by 1.4 by 1.8 cm. There is moderate surrounding vasogenic edema. There is a right superior cerebellar enhancing mass measuring up to 12 mm in greatest dimension. There is a 4 mm enhancing nodule in the left cerebellar hemisphere partly obscured by pulsation artifact. There are minimal hyperintense foci within the white matter consistent with chronic microvascular disease. No acute infarct. There is no hemorrhage or extra-axial collection. There are no abnormal flow voids. No midline shift. Cerebral ventricles: Normal. No ventriculomegaly. Bones/joints: Unremarkable. Paranasal sinuses: There is mild mucosal thickening in the sinuses. Mastoid air cells: Normal as visualized. No mastoid effusion. Orbits: Unremarkable. Soft tissues: Unremarkable. IMPRESSION: 2.2 cm enhancing left occipital mass with moderate surrounding vasogenic edema highly consistent with the stated diagnosis of brain metastasis. There is a 12 mm right superior cerebellar metastasis in a probable 4 mm left cerebellar metastasis. Electronically signed by: Jacob Gamez On 03/12/2020 18:42:53 PM
== END ==
LOC: M RAD 14:05
PROVIDERS: ATTEND Nurse Practitioner Family
DX: C79.31 Secondary malignant neoplasm of brain (principal)
CPT/HCPCS: 70553; A9576